=== PATIENT | female | born 1945 | race Caucasian/White ===

== ENCOUNTER 2016-07-02 09:23 | Outpatient (CLI) | payer OTHER ==
[2016-07-02 10:25] LABS: eGFR (African) > 60; eGFR (Non-African) > 60
--- NOTE | 2016-07-02 18:18 | Diagnostic Imaging Report ---
ALDO AGUSTIN [facility] [address] [facility] [address] [address] Report Submission Date: Jul 02, 2016 4:28:34 PM [employer] DISPATCHER Patient Study Name: VICKY HARTLEY Date: Jul 02, 2016 9:34:49 AM [employer] DISPATCHER Modality Type: CR Gender: F Description: UPPER EXTREMITY : 47 Institution: [facility] Physician: ALDO AGUSTIN Bilateral hands -three views CLINICAL HISTORY: Bilateral hand pain and deformity. FINDINGS: Examination both hands in palmar, lateral and oblique views demonstrates degenerative changes with narrowing of the interphalangeal joints worse distally. There is mild narrowing of the radiocarpal and lateral intercarpal joints. There is no evident fracture and no lytic or blastic lesion. Degenerative changes are most pronounced in the 2nd and 3rd distal interphalangeal joints bilaterally. IMPRESSION: Degenerative changes. No fracture. Electronically signed on Jul 02, 2016 4:28:34 PM FIRE [employer]HTERS DISPATCHER by: Reji MARTINEZ
== END 2016-07-02 09:24 ==
LOC: RAD 09:23
PROVIDERS: ATTEND Family Medicine
DX: M25.541 Pain in joints of right hand (principal); E78.2 Mixed hyperlipidemia
CPT/HCPCS: 36415; 80053; 80061

== ENCOUNTER 2016-10-04 11:43 | Outpatient (CLI) | payer OTHER ==
[2016-10-04 12:40] LABS: BASOPHILS % 0.6 (0.0-1.5); EOSINOPHILS % 2.6 % (0.0-6.8); MEAN CORPUSCULAR HEMOGLOBIN 21.2 pg (28.0-34.0); MEAN CORPUSCULAR VOLUME 77.9 fl (80.0-100.0); MONOCYTES % 6.1 % (0.0-11.0); NEUTROPHILS # 3.4 # k/uL (1.4-7.7)
[2016-10-04 12:42] LABS: eGFR (African) > 60; eGFR (Non-African) > 60
--- NOTE | 2016-10-04 14:27 | Diagnostic Imaging Report ---
[facility] [address] [facility].[address] [address] Report Submission Date: October 04, 2016 1:36:20 PM CDT Patient Study Name: VICKY HARTLEY Date: October 04, 2016 12:18:27 PM CDT Modality Type: US Gender: F Description: UNILAT LTD STDY EXT VEINS : 47 Institution: [facility] Physician: ALDO AGUSTIN - JANA Duplex imaging right lower extremity CLINICAL HISTORY: Swelling and tenderness for 1 week. Rule out deep venous thrombosis. TECHNIQUE: Real-time sonography of the right lower extremity is performed in transverse and longitudinal views. Doppler interrogation and color flow imaging are additionally used. FINDINGS: The veins are free of intraluminal thrombus. There are normal Doppler waveforms with normal respiratory fluctuation and augmentation. The veins compress normally. Interstitial edema is incidentally noted in the leg. IMPRESSION: No evidence of deep venous thrombosis. Interstitial edema in the leg. Electronically signed on October 04, 2016 1:36:20 PM CDT by: Reji MARTINEZ
--- NOTE | 2016-10-04 15:51 | Diagnostic Imaging Report ---
[facility] [address] [facility].[address] [address] Report Submission Date: October 04, 2016 3:47:48 PM CDT Patient Study Name: VICKY HARTLEY Date: October 04, 2016 12:05:56 PM CDT Modality Type: CR Gender: F Description: CHEST : 47 Institution: [facility] Physician: ALDO AGUSTIN - OP 2 views of the chest History: DYSPNEA. FORMER SMOKER. Findings: No comparison studies Cardiac size upper limits of normal. Aortic calcifications. Both lungs demonstrate diffuse reticulonodular opacities. There is right basilar patchy opacity Nodular opacity in the posterior lung field on the lateral view may be due to confluence of density and/or infiltrate. No pleural effusion or pneumothorax Degenerative changes thoracic spine Impression: Pulmonary vascular congestion. Right basilar infiltrate and/or atelectasis. Needs followup to resolution. Nodular density posterior lung field on the lateral view, recommend attention on followup. Electronically signed on October 04, 2016 3:47:48 PM CDT by: Sivan MARTINEZ
[2016-10-05 03:01] LABS: SERUM IRON 21 ug/dL (37-145)
== END 2016-10-04 11:44 ==
LOC: RT 11:43
PROVIDERS: ATTEND Family Medicine
DX: R06.09 Other forms of dyspnea (principal); R60.0 Localized edema; D64.9 Anemia, unspecified
CPT/HCPCS: 36415; 71020; 80048; 82728; 83540; 83550; 83880; 85025; 85045; 93971

== ENCOUNTER 2016-10-05 15:29 | Outpatient (CLI) | payer OTHER | END 2016-10-05 15:30 | LOC: CARD 15:29 | PROVIDERS: ATTEND Internal Medicine Cardiovascular Disease | DX: R06.02 Shortness of breath (principal) | CPT/HCPCS: G0463 ==

== ENCOUNTER 2017-03-04 15:41 | Outpatient (CLI) | payer OTHER | END 2017-03-04 15:42 | LOC: LABRHC 15:41 | PROVIDERS: ATTEND Family Medicine | DX: R30.0 Dysuria (principal) | CPT/HCPCS: 87086; 87186 ==